=== PATIENT | male | born 1990 | race African-American/Black ===

== ENCOUNTER 2017-10-12 21:35 | Inpatient (IN) | payer BC, MEDICAID, OTHER ==
[2017-10-12] MEDS ORDERED: IPRATROPIUM/ALBUTEROL 0.5-2.5 MG/3 ML AMPUL NEB ONE ×2 (22:57→23:03)
[2017-10-12] MEDS ORDERED: METHYLPREDNISOLONE INJ 125 MG/2 ML SDV IV ONE (23:04)
[2017-10-12] MEDS ORDERED: METHYLPREDNISOLONE INJ 125 MG/2 ML SDV ONE (23:04)
[2017-10-12] MEDS ORDERED: MAGNESIUM SULFATE/D5W 2 GM/200 ML RTUPB IV ONE (23:04)
[2017-10-12] MEDS: MAGNESIUM SULFATE/D5W 1 GM/100 ML RTUPB IV SCH ×2 (23:15→23:17)
--- NOTE | 2017-10-12 23:22 | ER Document Report ---
ED General - General Chief Complaint: Shortness Of Breath Stated Complaint: CHEST PAIN DIFFICUTLY BREATHING Time Seen by Provider: 10/12/17 22:57 Notes: Patient is a 26-year-old male who presents with complaint of asthma exacerbation. Patient says he has had asthma since he was a child. He has been admitted to the hospital in the past for his asthma. He has never been on a ventilator. He says he typically does not have to use an inhaler unless he becomes sick. Patient says he started to have runny nose and congestion earlier in the day and then started to have difficulty breathing wheezing as the day progressed. He does not have an inhaler at home. She denies any fevers. He is a smoker. He denies any medical allergies. No other complaints at this time. TRAVEL OUTSIDE OF THE [place] IN LAST 30 DAYS: No - Related Data Allergies/Adverse Reactions: No Known Allergies Allergy (Unverified 10/13/17 02:48) Past Medical History - Social History Smoking Status: Current Every Day Smoker Frequency of alcohol use: None Drug Abuse: None Family History: Reviewed & Not Pertinent Review of Systems - Review of Systems Notes: My Normal Review Basic REVIEW OF SYSTEMS: CONSTITUTIONAL : Denies fever, chills, or sweats. Denies recent illness. CARDIOVASCULAR: Chest tightness with difficulty breathing RESPIRATORY: cough and wheezing GASTROINTESTINAL: Denies abdominal pain. Denies nausea, vomiting, or diarrhea. Denies constipation. Last BM: GENITOURINARY: Denies difficulty urinating, painful urination, burning, frequency, or blood in urine. MUSCULOSKELETAL: Denies neck or back pain or joint pain or swelling. SKIN: Denies rash or skin lesions. NEUROLOGICAL: Denies altered mental status or loss of consciousness. Denies headache. Denies weakness or paralysis or loss of use of either side. Denies problems with gait or speech. Denies sensory or motor loss. ALL OTHER SYSTEMS REVIEWED AND NEGATIVE. Physical Exam - Vital signs Vitals: Temp Pulse Resp BP Pulse Ox 98.8 F 116 H 18 120/64 96 10/12/17 22:04 10/12/17 22:04 10/12/17 22:04 10/12/17 22:04 10/12/17 22:04 - Notes Notes: General Appearance: Well nourished, alert, cooperative, no acute distress, no obvious discomfort. Vitals: reviewed, See vital signs table. Head: no swelling or tenderness to the head Eyes: PERRL, EOMI, Conjuctiva clear Mouth: No decreasd moisture Neck: Supple, no neck tenderness Lungs: Diffuse wheezing. Mild tachypnea.. Heart: Tachycardic rate, Regular rythm, No murmur, no rub Abdomen: Normal BS, soft, No rigidity, No abdominal tenderness, No guarding, no rebound Extremities: strength 5/5 in all extremities, good pulses in all extremities, no swelling or tenderness in the extremities, no edema. Skin: warm, dry, appropriate color, no rash Neuro: speech clear, oriented x 3, normal affect, responds appropriately to questions. Course - Re-evaluation Re-evalutation: 10/12/17 23:29 Patient's lung encinas are improved after breathing treatment however he is still requiring supplemental oxygen and still has some mild tachypnea. I am awaiting x-ray to come back. He is receiving magnesium at this time. Will reassess shortly after chest x-ray comes back. 10/13/17 00:30 Patient still has mild wheezing on reevaluation but is still requiring subliminal oxygen. Due to the good air movement and small amount of wheezing that he has with hypoxia which would not be 100% expected I will obtain a CT of the chest to make sure that he does not have an underlying PE. Patient is agreeable to this. 10/13/17 05:00 To the fact patient continually have mild wheezing and had fairly good air movement but was still hypoxic we did obtain a CT scan. CT scan does not show obvious PE. She did not mention that the bolus was voluminous times however they do not see an obvious PE. He does have what appears to be bilateral pneumonia. I did speak with the hospitalist who is ordering Rocephin and azithromycin for the patient. She will admit the patient. I spoke the patient who agrees to be admitted. Hospitalist I spoke with was Dr. Prajapati. Dictation of this chart was performed using voice recognition software; therefore, there may be some unintended grammatical errors. - Vital Signs Vital signs: Temp Pulse Resp BP Pulse Ox 98.8 F 116 H 16 131/93 H 93 10/12/17 22:04 10/12/17 22:04 10/13/17 02:06 10/13/17 02:06 10/13/17 02:06 - Laboratory Result Diagrams: 10/12/17 23:15 10/12/17 23:15 Laboratory results interpreted by me: 10/12/17 10/12/17 23:15 23:15 WBC 14.4 H RBC 5.78 H MCH 26.9 L RDW 14.3 H Absolute Neutrophils 8.8 H Absolute Eosinophils 0.8 H Calcium 10.9 H - EKG Interpretation by Me Additional EKG results interpreted by me: 10/13/17 01:14 EKG is reviewed and interpreted by me. EKG shows sinus tachycardia with a rate of [address] segment elevation or depression. Patient does have small Q waves in inferior leads. IL interval, QRS duration, QTc intervals are within normal range. No old EKG available for comparison. Discharge - Discharge Clinical Impression: Pneumonia Qualifiers: Pneumonia type: due to unspecified organism Laterality: bilateral Lung location : unspecified part of lung Qualified Code(s): J18.9 - Pneumonia, unspecified organism Condition: Stable Disposition: ADMITTED INPATIENT Admitting Provider: Hospitalist Unit Admitted: Telemetry
[2017-10-12 23:50] LABS: ANION GAP 15 (5-19); BLOOD UREA NITROGEN 11 mg/dL (7-20); CALCIUM 10.9 mg/dL (8.4-10.2); CARBON DIOXIDE 23 mmol/L (22-30); CHLORIDE 106 mmol/L (98-107); CREATININE RESULT 0.99 mg/dL (0.52-1.25); GLUCOSE 94 mg/dL (75-110); POTASSIUM 4.2 mmol/L (3.6-5.0)
[2017-10-12 23:51] LABS: ABSOLUTE BASOPHILS # (AUTO) 0.1 10^3/uL (0.0-0.2); ABSOLUTE EOSINOPHILS # (AUTO) 0.8 10^3/uL (0.0-0.6); ABSOLUTE LYMPHOCYTES (AUTO) 3.7 10^3/uL (0.5-4.7); ABSOLUTE MONOCYTES (AUTO) 1.1 10^3/uL (0.1-1.4); ABSOLUTE NEUT (AUTO) 8.8 10^3/uL (1.7-8.2); BASOPHILS % (AUTO) 0.6 % (0-2); EOSINOPHILS % (AUTO) 5.6 % (0-6); HEMOGLOBIN 15.5 g/dL (13.5-17.0); HGB HCT DIFFERENCE -0.5; LYMPHOCYTES % (AUTO) 25.5 % (13-45); MEAN CORPUSCULAR HEMOGLOBIN 26.9 pg (27.0-33.4); MEAN CORPUSCULAR HGB CONC 33.1 g/dL (32.0-36.0); MEAN CORPUSCULAR VOLUME 81 fl (80-97); MONOCYTES % (AUTO) 7.3 % (3-13); RED BLOOD COUNT 5.78 10^6/uL (4.35-5.55); RED CELL DISTRIBUTION WIDTH 14.3 % (11.5-14.0); WHITE BLOOD COUNT 14.4 10^3/uL (4.0-10.5)
--- NOTE | 2017-10-13 00:24 | RADIOLOGY REPORT (SQ) ---
EXAM DESCRIPTION: CHEST SINGLE VIEW COMPLETED DATE/TIME: 10/13/2017 12:13 am REASON FOR STUDY: dyspnea COMPARISON: None. EXAM PARAMETERS: NUMBER OF VIEWS: One view. TECHNIQUE: Single frontal radiographic view of the chest acquired. RADIATION DOSE: NA LIMITATIONS: None. FINDINGS: LUNGS AND PLEURA: No consolidation, pneumothorax or pleural effusion. MEDIASTINUM AND HILAR STRUCTURES: No masses. Contour normal. HEART AND VASCULAR STRUCTURES: Heart normal in size. Normal vasculature. BONES: No acute findings. HARDWARE: None in the chest. IMPRESSION: No acute radiographic finding in the chest. TECHNICAL DOCUMENTATION: JOB ID: [id number] 2010 [employer]- All Rights Reserved
[2017-10-13] MEDS ORDERED: NORMAL SALINE 1000 ML 1,000 ML IV ONE ×2 (00:27→04:25)
[2017-10-13] MEDS ORDERED: ALBUTEROL SULFATE 0.083% NEB 2.5 MG/3 ML AMPUL NEB ONE ×2 (01:59)
--- NOTE | 2017-10-13 02:25 | RADIOLOGY REPORT (SQ) ---
EXAM DESCRIPTION: CTA CHEST COMPLETED DATE/TIME: 10/13/2017 1:52 am REASON FOR STUDY: dyspnea , shortness of breath. COMPARISON: Chest x-ray 10/13/2017. TECHNIQUE: CT scan of the chest performed using helical scanning technique with dynamic intravenous contrast injection. Images reviewed with lung, soft tissue and bone windows. Reconstructed coronal and sagittal MPR images reviewed. Additional 3 dimensional post-processing performed to develop Maximal Intensity Projection images (IL P). All images stored on PACS. All CT scanners at this facility use dose modulation, iterative reconstruction, and/or weight based d osing when appropriate to reduce radiation dose to as low as reasonably achievable (ALARA). [facility]: Dose Right [facility]: CareDose [facility]: Dose Right [facility]: Teradose 4D [facility]: ANDalyze CONTRAST TYPE AND DOSE: contrast/concentration: Isovue 370.00 mg/ml; Total Contrast Delivered: 100.0 ml; Total Saline Delivered: 55.0 ml RENAL FUNCTION: Creatinine 0.99 RADIATION DOSE: . LIMITATIONS: There is motion artifact. There is suboptimal contrast opacification of the pulmonary arterial tree. FINDINGS: LUNGS AND PLEURA: Scattered patchy ground-glass opacities are seen at the right upper lobe , right middle lobe, right lower lobe, lingula and left lower lobe. No pleural effusion or pneumotho rax. AORTA AND GREAT VESSELS: No thoracic aortic aneurysm. HEART: No pericardial effusion. No significant coronary artery calcifications. PULMONARY ARTERIES: Suboptimal contrast opacification of the pulmonary arterial tree. No emboli with in the main pulmonary arteries, the segmental and subsegmental branches are not well evaluated on thi s exam. HILAR AND MEDIASTINAL STRUCTURES: No identified masses or abnormal nodes. HARDWARE: None in the chest. UPPER ABDOMEN: No significant findings. Limited exam. THYROID AND OTHER SOFT TISSUES: The visualized thyroid gland is unremarkable. BONES: No acute findings. 3D MIPS: Confirm above findings. IMPRESSION: Suboptimal contrast opacification of the pulmonary arterial tree. No pulmonary emboli w ithin the main pulmonary arteries, the segmental and subsegmental branches are not well evaluated on this exam. Scattered bilateral patchy ground-glass opacity, may represent atelectasis or pneumonia. COMMENT: Quality ID # [id number]: Final reports with documentation of one or more dose reduction techniques (e.g., Automated exposure control, adjustment of the mA and/or kV according to patient size, use of iterative reconstruction technique) TECHNICAL DOCUMENTATION: JOB ID: [id number] [place]-[id number] 2010 [facility] [employer] [facility] [employer]- All Rights Reserved
[2017-10-13] MEDS ORDERED: GUAIFENESIN SYRP 200 MG/10 ML UDC PO PRN (04:21)
[2017-10-13] MEDS ORDERED: LEVALBUTEROL HCL NEB 1.25 MG/3 ML AMPUL NEB PRN (04:21)
[2017-10-13] MEDS ORDERED: AZITHROMYCIN INJ 500 MG VIAL IV PRN (04:48)
[2017-10-13] MEDS ORDERED: AZITHROMYCIN 500 MG in DEXTROSE 5%-WATER 250 ML IV ONE (05:00)
[2017-10-13] MEDS ORDERED: CEFTRIAXONE 1 GM/D5W RTU 1 GM/50 ML RTUPB IV ONE (05:00)
[2017-10-13] MEDS: NORMAL SALINE 1000 ML 1,000 ML IV PRN ×3 (06:30→21:23)
--- NOTE | 2017-10-13 07:40 | PDOC H&P ---
History of Present Illness Admission Date/PCP: 10/13/17 03:41 NO PCP History of Present Illness: SUSI RYAN JR is a 26 year old male with past medical history of asthma who presents to the emergency department with about 24 hours of subjective fever , chills, shortness of breath, nausea and cough productive of yellow sputum. Patient was found to be in extremis with hypoxia and received 3 breathing treatments in the emergency department. Patient has a prior admission history for his asthma, but has never been intubated. Because of patient's hypoxia desaturating down to 88 when on room air, patient received a CTA. Unfortunately this revealed a suboptimal bolus, but did reveal groundglass infiltrates consistent with pneumonia. Patient is referred to hospital service for sepsis and pneumonia. Past Medical History Pulmonary Medical History: Reports: Asthma Past Surgical History Past Surgical History: Reports: Orthopedic Surgery Social History Smoking Status: Current Every Day Smoker Cigarettes Packs Per Day: 0.2 Frequency of Alcohol Use: Occasional Hx Recreational Drug Use: No Hx Prescription Drug Abuse: No - Advance Directive Resuscitation Status: Full Code Surrogate healthcare decision maker:: Mother, Marissa Ryan Family History Family History: CAD, Other - Father of a blood clot Parental Family History Reviewed: Yes Children Family History Reviewed: Yes Sibling(s) Family History Reviewed.: Yes Medication/Allergy Home Medications: No Home Medications 10/13/17 Allergies/Adverse Reactions: No Known Allergies Allergy (Unverified 10/13/17 02:48) Review of Systems Constitutional: PRESENT: as per HPI, chills, fever(s). ABSENT: headache(s), weight gain, weight loss Eyes: ABSENT: visual disturbances Ears: ABSENT: hearing changes Cardiovascular: PRESENT: chest pain. ABSENT: dyspnea on exertion, edema, orthropnea, palpitations Respiratory: PRESENT: cough, dyspnea, sputum. ABSENT: hemoptysis Gastrointestinal: PRESENT: nausea. ABSENT: abdominal pain, constipation, diarrhea, hematemesis, hematochezia, melena, vomiting Genitourinary: ABSENT: dysuria, hematuria Musculoskeletal: ABSENT: joint swelling Integumentary: ABSENT: rash, wounds Neurological: ABSENT: abnormal gait, abnormal speech, confusion, dizziness, focal weakness, syncope Psychiatric: ABSENT: anxiety, depression, homidical ideation, suicidal ideation Endocrine: ABSENT: cold intolerance, heat intolerance, polydipsia, polyuria Hematologic/Lymphatic: ABSENT: easy bleeding, easy bruising Physical Exam Vital Signs: Temp Pulse Resp BP Pulse Ox 98.9 F 116 H 22 H 130/76 H 94 10/13/17 05:50 10/12/17 22:04 10/13/17 07:01 10/13/17 07:01 10/13/17 07:01 General appearance: PRESENT: mild distress - Acutely ill-appearing, well- developed, well-nourished Head exam: PRESENT: atraumatic, normocephalic Eye exam: PRESENT: conjunctiva pink, EOMI, PERRLA. ABSENT: conjunctival injection, scleral icterus Ear exam: PRESENT: normal external ear exam Mouth exam: PRESENT: dry mucosa, tongue midline Throat exam: PRESENT: post pharyngeal erythema. ABSENT: tonsillar erythema, tonsillar exudate, tonsillogmegaly Neck exam: PRESENT: lymphadenopathy. ABSENT: JVD, tenderness, thyromegaly, tracheal deviation Respiratory exam: PRESENT: prolonged expiratory phas, rhonchi, symmetrical, tachypnea, unlabored, wheezes - Bilateral end expiratory, other - Egophony bilateral upper lobes. ABSENT: accessory muscle use, rales, retraction Cardiovascular exam: PRESENT: RRR, +S1, +S2, tachycardia. ABSENT: diastolic murmur, gallop, rubs, systolic murmur Pulses: PRESENT: normal dorsalis pedis pul Vascular exam: PRESENT: normal capillary refill GI/Abdominal exam: PRESENT: normal bowel sounds, soft. ABSENT: distended, guarding, mass, organolmegaly, rebound, tenderness Rectal exam: PRESENT: deferred Extremities exam: PRESENT: full ROM. ABSENT: calf tenderness, clubbing, pedal edema Neurological exam: PRESENT: alert, awake, oriented to person, oriented to place , oriented to time, oriented to situation, CN II-XII grossly intact. ABSENT: motor sensory deficit Psychiatric exam: PRESENT: appropriate affect, normal mood. ABSENT: homicidal ideation, suicidal ideation Skin exam: PRESENT: dry, intact, rash - Pale circumferential macular rash on right forearm, warm. ABSENT: cyanosis Results Laboratory Results: 10/13/17 05:40 Lactic Acid 3.0 H 10/12/17 10/12/17 10/13/17 23:15 23:15 04:50 WBC 14.4 H Hgb 15.5 Hct 47.0 Plt Count 208 Sodium 144.0 Potassium 4.2 Chloride 106 Carbon Dioxide 23 Anion Gap 15 BUN 11 Creatinine 0.99 Glucose 94 Calcium 10.9 H Influenza A (Rapid) NEGATIVE Influenza B (Rapid) NEGATIVE Impressions: Chest X-Ray 10/12/17 23:28 IMPRESSION: No acute radiographic finding in the chest. Chest/Abdomen CTA 10/13/17 00:27 IMPRESSION: Suboptimal contrast opacification of the pulmonary arterial tree. No pulmonary emboli within the main pulmonary arteries, the segmental and subsegmental branches are not well evaluated on this exam. Scattered bilateral patchy ground-glass opacity, may represent atelectasis or pneumonia. Status: Imported from PACS Assessment & Plan - Diagnosis (1) Sepsis Qualifiers: Sepsis type: sepsis due to unspecified organism Qualified Code(s): A41.9 - Sepsis, unspecified organism Is this a current diagnosis for this admission?: Yes Plan: Secondary to underlying pneumonia. Will bolus patient and maintain map greater than 65. Did not start empiric treatment for community-acquired pneumonia. (2) Acute hypoxemic respiratory failure Is this a current diagnosis for this admission?: Yes Plan: Continue oxygen as needed to maintain saturation greater than 94% (3) Pneumonia Qualifiers: Pneumonia type: due to unspecified organism Laterality: bilateral Lung location: unspecified part of lung Qualified Code(s): J18.9 - Pneumonia, unspecified organism Is this a current diagnosis for this admission?: Yes Plan: Patient with bilateral pneumonia likely an atypical organism due to community- acquired causes. Place patient empirically on Rocephin and azithromycin. Scheduled nebulized treatments, and prednisone. Obtain sputum culture. Incentive spirometry and flutter valve. Guaifenesin. - Time Time Spent: 30 to 50 Minutes Medications reviewed and adjusted accordingly: Yes Anticipated discharge: Home Within: Other - Upon improvement of symptomatology - Inpatient Certification Based on my medical assessment, after consideration of the patient's comorbidities, presenting symptoms, or acuity I expect that the services needed warrant INPATIENT care.: Yes I certify that my determination is in accordance with my understanding of Medicare's requirements for reasonable and necessary INPATIENT services [42 CFR 412.3e].: Yes Medical Necessity: Need For IV Fluids, Need for Nebulizer Therapy and Monitoring of Response, Need for IV Antibiotics Post Hospital Care: D/C Manager Technical Sales Documentation
[2017-10-13] MEDS: IPRATROPIUM/ALBUTEROL 0.5-2.5 MG/3 ML AMPUL NEB SCH ×3 (08:00→19:44)
--- NOTE | 2017-10-13 08:15 | EKG REPORT ---
SEVERITY:- OTHERWISE NORMAL ECG - SINUS TACHYCARDIA : Confirmed by: Fidel Burr MD 13-Oct-2017 08:14:53
[2017-10-13] MEDS: ACETAMINOPHEN 325 MG TABLET PO PRN ×2 (08:55→20:41)
--- NOTE | 2017-10-13 09:36 | RADIOLOGY REPORT (SQ) ---
EXAM DESCRIPTION: VENOUS BILATERAL LOWER COMPLETED DATE/TIME: 10/13/2017 9:28 am REASON FOR STUDY: hypoxia COMPARISON: None. TECHNIQUE: Dynamic and static weathers scale and color images acquired of both lower extremity venous sy stems. Selected spectral images acquired with additional compression and augmentation maneuvers. Imag es stored on PACS. LIMITATIONS: None. FINDINGS: RIGHT LEG COMMON FEMORAL AND FEMORAL: Normal phasicity, compression and augmentation. No visualized echogenic m aterial on weathers scale. No defects on color images. POPLITEAL: Normal compression and augmentation. No visualized echogenic material on weathers scale. No de fects on color images. CALF VESSELS: Normal compression and augmentation. No visualized echogenic material on weathers scale. No defects on color image. GSV AND SSV: Normal compression. No visualized echogenic material on weathers scale. No defects on color images. ANY DEEP VENOUS INSUFFICIENCY: No. ANY EVIDENCE OF POPLITEAL CYST: No. OTHER: No other significant finding. LEFT LEG COMMON FEMORAL AND FEMORAL: Normal phasicity, compression and augmentation. No visualized echogenic m aterial on weathers scale. No defects on color images. POPLITEAL: Normal compression and augmentation. No visualized echogenic material on weathers scale. No de fects on color images. CALF VESSELS: Normal compression and augmentation. No visualized echogenic material on weathers scale. No defects on color images. GSV AND SSV: Normal compression. No visualized echogenic material on weathers scale. No defects on color images. ANY DEEP VENOUS INSUFFICIENCY: No. ANY EVIDENCE POPLITEAL CYST: No. OTHER: No other significant finding. IMPRESSION: NO EVIDENCE DVT OR SVT IN EITHER LEG. TECHNICAL DOCUMENTATION: JOB ID: [id number] [employer]- All Rights Reserved
[2017-10-13] MEDS ORDERED: PREDNISONE 20 MG TABLET PO SCH (10:00)
[2017-10-13] MEDS: ENOXAPARIN SODIUM INJ 40 MG/0.4 ML DISP.SYRIN SUBCUT SCH (10:07)
[2017-10-13] MEDS: GUAIFENESIN 600 MG TABLET.SA PO SCH ×2 (10:08→21:23)
--- NOTE | 2017-10-13 13:08 | PROGRESS NOTE E ---
Progress Note NAME: SUSI RYAN : 1990 AGE: 26Y DATE: 10/13/2017 ROOM: ED03 SUBJECTIVE: The patient is lying in bed. The patient states that he does feel better than when he came in. The patient is now able to fully complete sentences, which is a significant improvement. The patient admits to a strong cough but denies sputum production. The patient has been afebrile but remains slightly tachycardic, will tach up into the 120s with nebulizers. Blood pressures have been in a good range. The patient does not voice any concerns at this time. REVIEW OF SYSTEMS: The rest of the review of systems is negative. MEDICATIONS: Medications have been reviewed. OBJECTIVE: GENERAL: The patient is a very pleasant 26-year-old male who is awake, alert. He is oriented to person, place, time, and situation. He is verbal, conversational. He does not appear to be in distress. VITAL SIGNS: As follows: Temperature is 98.0, pulse 106, respirations 17, blood pressure is 137/69, oxygen saturation is 94% on 2 L nasal cannula. SKIN: Warm and dry. No rash, not diaphoretic. HEENT: Pupils equal, round, and reactive to light and accommodation. Conjunctiva is pink. No JVP. CARDIOVASCULAR: Heart is tachycardic, regular. Is no rub. CHEST: Patient is very diminished in both lung encinas with expiratory wheezes noted in the upper lung encinas. ABDOMEN: Soft, nontender, nondistended. BACK: No CVA tenderness or sacral edema. EXTREMITIES: No clubbing, cyanosis, edema. PSYCHIATRIC: Appropriate affect. Pleasant mood. DIAGNOSTICS: Lab values are as follows. Hematology obtained on 10/12/2017: WBCs are 14.4, hemoglobin is 15.5, hematocrit is 47.0, and platelet count is 208,000. Chemistry obtained on 10/12/2017: Sodium is 144, potassium 4.2, chloride is 106, carbon dioxide 23, BUN 11, creatinine is 0.99, glucose 94, calcium is 10.9. IMPRESSION AND PLAN: 1. ACUTE ASTHMA EXACERBATION. The patient still is quite tight. Will continue scheduled nebs as well as p.r.n. Continue steroids and will add leukotriene inhibitor as well as antihistamine and follow. 2. ACUTE HYPOXEMIC RESPIRATORY FAILURE. Will continue O2 to maintain sats greater than 94%. 3. BILATERAL COMMUNITY-ACQUIRED PNEUMONIA. Will continue current antibiotic coverage as well as await sputum culture and sensitivity. 4. SEPSIS SECONDARY TO ALL THE ABOVE. Clinically the patient appears to be improving. DISPOSITION: THE PATIENT IS A FULL CODE. Pending the patient's symptomatology and diagnostic findings, will re-evaluate in the a.m. Time spent on this followup, including assessment/plan, physical examination, patient education and review of previous and current medical records, is 25 minutes. DICTATING PHYSICIAN: ALEJANDRA LEOS NP [id number] PHY#: [id number] ID: [id number] JOB#: [id number] ACCT: [id number] cc: >
[2017-10-13] MEDS ORDERED: INFLUENZA ADLT QUAD (36MOS+) 2017-18 VAC 0.5 ML SYR IM PRN (14:50)
[2017-10-13] MEDS ORDERED: NORMAL SALINE 1000 ML 2,000 ML IV ONE (20:12)
[2017-10-13] MEDS ORDERED: MONTELUKAST SODIUM 10 MG TABLET PO SCH (22:00)
[2017-10-14] MEDS: IPRATROPIUM/ALBUTEROL 0.5-2.5 MG/3 ML AMPUL NEB SCH ×2 (01:57→07:39)
[2017-10-14 05:30] LABS: ABSOLUTE LYMPHOCYTES (AUTO) 2.7 10^3/uL (0.5-4.7); ABSOLUTE MONOCYTES (AUTO) 1.9 10^3/uL (0.1-1.4); ABSOLUTE NEUT (AUTO) 12.7 10^3/uL (1.7-8.2); BASOPHILS % (AUTO) 0.2 % (0-2); EOSINOPHILS % (AUTO) 0.2 % (0-6); HEMATOCRIT 38.9 % (37.9-51.0); HGB HCT DIFFERENCE -0.5; LYMPHOCYTES % (AUTO) 15.6 % (13-45); MEAN CORPUSCULAR HEMOGLOBIN 26.3 pg (27.0-33.4); MEAN CORPUSCULAR HGB CONC 32.8 g/dL (32.0-36.0); MEAN CORPUSCULAR VOLUME 80 fl (80-97); MONOCYTES % (AUTO) 10.7 % (3-13); RED BLOOD COUNT 4.85 10^6/uL (4.35-5.55); RED CELL DISTRIBUTION WIDTH 14.4 % (11.5-14.0); SEGMENTED NEUTROPHILS % (AUTO) 73.3 % (42-78); WHITE BLOOD COUNT 17.4 10^3/uL (4.0-10.5)
[2017-10-14 05:34] LABS: HEMOGLOBIN 12.8 g/dL (13.5-17.0)
[2017-10-14 05:43] LABS: ANION GAP 13 (5-19); BLOOD UREA NITROGEN 7 mg/dL (7-20); CALCIUM 9.9 mg/dL (8.4-10.2); CARBON DIOXIDE 19 mmol/L (22-30); CHLORIDE 112 mmol/L (98-107); CREATININE RESULT 0.67 mg/dL (0.52-1.25); GLUCOSE 107 mg/dL (75-110); POTASSIUM 3.9 mmol/L (3.6-5.0)
--- NOTE | 2017-10-14 07:53 | EKG REPORT ---
SEVERITY:- OTHERWISE NORMAL ECG - SINUS TACHYCARDIA : Confirmed by: Fidel Burr MD 14-Oct-2017 07:53:09
[2017-10-14] MEDS ORDERED: AZITHROMYCIN 500 MG in DEXTROSE 5%-WATER 250 ML IV SCH (08:00)
[2017-10-14] MEDS ORDERED: CEFTRIAXONE 1 GM/D5W RTU 1 GM/50 ML RTUPB IV SCH (08:00)
[2017-10-14] MEDS: ENOXAPARIN SODIUM INJ 40 MG/0.4 ML DISP.SYRIN SUBCUT SCH (09:25)
[2017-10-14] MEDS: GUAIFENESIN 600 MG TABLET.SA PO SCH (09:26)
[2017-10-14] MEDS ORDERED: PREDNISONE 20 MG TABLET PO SCH (10:00)
[2017-10-14 10:05] VITALS: BP 120/64
--- NOTE | 2017-10-14 15:03 | DISCHARGE SUMMARY E ---
Discharge Summary NAME: SUSI RYAN : 1990 AGE: 26Y ADMITTED: 10/13/2017 DISCHARGED: 10/14/2017 CODE STATUS: FULL CODE. PRIMARY CARE PROVIDER: [facility]. DISCHARGE DIAGNOSES: 1. Asthma exacerbation. 2. Acute hypoxemic respiratory failure. 3. Bilateral community-acquired pneumonia. 4. Sepsis secondary to all the above, which has resolved. DISCHARGE MEDICATIONS: 1. Prednisone 60 mg taper. 2. Mucinex SR 600 mg p.o. q.12 h., 14 tablets, 0 refills. 3. Ceftin 500 mg p.o. b.i.d., 14 tablets, 0 refills. 4. Zithromax Tri-Tyrone 500 mg p.o. daily. DIET: As tolerated. ACTIVITY: As tolerated. DIAGNOSTICS: Lab values are as follows: Hematology on 10/14/2017: WBCs are 17.4, hemoglobin 12.8, hematocrit 38.9, platelet count is 181,000. Coagulation obtained on 10/13/2017: D-dimer is 0.27. Chemistry obtained on 10/14/2017: Sodium is 144, potassium 3.9, chloride 112, carbon dioxide 19, BUN 7, creatinine 1.67, glucose 107, calcium 9.9. Serology obtained on 10/13/2017: Influenza A and B are negative. Blood cultures obtained on 10/13/2017 revealed no growth. Sputum culture obtained on 10/13/2017 revealed no growth. Chest x-ray obtained on 10/12/2017 reveals no acute radiographic finding of the chest. Venous Doppler obtained on 10/13/2017 reveals no DVT or SVT in either extremity. CTA of the abdomen obtained 10/12/2017 reveals scattered bilateral patchy ground-glass opacities consistent with atelectasis or pneumonia. No evidence of pulmonary emboli within the main pulmonary arteries. EKG obtained on 10/13/2017 reveals sinus tach. EKG obtained on 10/13/2017 reveals sinus tachycardia. PHYSICAL EXAMINATION: GENERAL: On examination, the patient is a well-developed, well-nourished 26-year-old male who is awake, alert and oriented to person, place, time and situation. He is verbal and conversational and does not appear to be in any acute distress. VITAL SIGNS FOLLOWS: Temperature 98.5, pulse 113, respirations 18, blood pressure 121/73, oxygen saturation is 97% on 2 L nasal cannula. SKIN: Warm and dry. No rash, not diaphoretic. HEENT: Pupils are equal, round, and reactive to light and accommodation. Conjunctivae is pink. No JVP. CVS: Heart is regular. There is no murmur or rub. CHEST: Clear, symmetrical and unlabored. ABDOMEN: Soft. Nontender, nondistended. BACK: No CVA tenderness or sacral edema. EXTREMITIES: No clubbing, cyanosis or edema. PSYCHIATRIC: Appropriate affect. Pleasant mood. HISTORY OF PRESENT ILLNESS: The patient is a pleasant 26-year-old male with a past medical history of asthma who presented to the emergency department with a 24-hr history of subjective fevers, chills and shortness of breath but yellow productive cough. The patient was found to have hypoxia. The patient received 3 breathing treatments while in the emergency department. The patient had a prior admission history for asthma but had never been intubated. Because of the patient's hypoxia down to 88% on room air, the patient had a CTA which did not reveal any PE within the main arteries but given the findings suggestive of pneumonia, the patient was referred to the hospitalist for admission and management. HOSPITAL COURSE: The patient was admitted to the [facility]. The patient was placed on Rocephin and Zithromax IV, and the patient had a tremendous response to symptoms. The patient was started on Singulair as well as Mucinex, and the patient began producing copious amounts of sputum. The patient was able to ambulate on room air and did not desat below 98%. The patient was able to fully complete sentences, had no fevers overnight, and the patient is quite eager for discharge. DISCHARGE PLANNING: The patient is advised to follow up with his primary care provider, [facility], within 1 week for hospital followup. Time spent on this discharge including assessment and plan, physical examination, and patient education is 25 minutes. DICTATING PHYSICIAN: ALEJANDRA LEOS NP [id number] PHY#: [id number] ID: [id number] JOB#: [id number] ACCT: [id number] cc:REBECCA HERRERA M.D., MICHAEL NP >
== END 2017-10-14 11:02 | disposition home or self-care (01) | DRG 871 ==
LOC: ER 21:35 → EH 10-13 03:41 → 3N 10-13 14:00
PROVIDERS: ADMIT Family Medicine; ATTEND Family Medicine
PROC: 3E0234Z Introduction of Serum, Toxoid and Vaccine into Muscle, Percutaneous Approach (ICD-10-PCS; principal; 2017-10-14)
DX: A41.9 Sepsis, unspecified organism (principal); J18.9 Pneumonia, unspecified organism; J96.01 Acute respiratory failure with hypoxia; J45.901 Unspecified asthma with (acute) exacerbation; F17.210 Nicotine dependence, cigarettes, uncomplicated; Z23 Encounter for immunization
CPT/HCPCS: 36415; 71010; 71275; 80048; 83605; 85025; 85379; 87040; 87070; 87077; 87186; 87205; 87804; 90686; 93005; 93010; 93970; 94640; 94667; 94762; 94799; 96365; 96366; 96375; 99285; J0456; J0696; J1650; J2930; J3475; J3490; J7030; J7060; J7512; J7620

== ENCOUNTER 2018-08-16 15:52 | Emergency (ER) | payer SELFPAY ==
--- NOTE | 2018-08-16 16:39 | ER Document Report ---
ED Medical Screen (RME) - General Chief Complaint: Pain With Urination Stated Complaint: TESTICLE PAIN Time Seen by Provider: 08/16/18 16:37 Mode of Arrival: Ambulatory Information source: Patient, [facility] Records Notes: 27-year-old male presents with complaint of testicular pain, penile discharge and dysuria that started 2 days prior to arrival. Patient is sexually active. He states that he wears protection "most of the time". He denies previous history of STD. I have greeted and performed a rapid initial assessment of this patient. A comprehensive ED assessment and evaluation of the patient, analysis of test results and completion of medical decision making process we will be contacted by additional ED providers. PHYSICAL EXAMINATION: Vital signs reviewed GENERAL: Well-appearing, well-nourished and in no acute distress. LUNGS: No respiratory distress Musculoskeletal: Normal range of motion NEUROLOGICAL: Normal speech, normal gait. PSYCH: Normal mood, normal affect. SKIN: Warm, Dry, normal turgor, no rashes or lesions noted. TRAVEL OUTSIDE OF THE [place] IN LAST 30 DAYS: No - HPI Onset: Other Onset/Duration: Gradual, Persistent Quality of pain: Dull Severity: Mild Associated Symptoms: Dysuria Exacerbated by: Denies Relieved by: Denies Similar symptoms previously: No Recently seen / treated by doctor: No - Related Data Smoking: Cigarettes Frequency of alcohol use: None Drug Abuse: None Allergies/Adverse Reactions: No Known Allergies Allergy (Unverified 10/13/17 02:48) Past Medical History - Social History Chew tobacco use (# tins/day): No Frequency of alcohol use: None Drug Abuse: None Pulmonary Medical History: Reports: Hx Asthma Renal/ Medical History: Denies: Hx Peritoneal Dialysis Psychiatric Medical History: Denies: Hx Depression Past Surgical History: Reports: Hx Orthopedic Surgery - Immunizations History of Influenza Vaccine for 08/2017 - 01/2018 Season: No Physical Exam - Vital signs Vitals: Temp Pulse Resp BP Pulse Ox 99.1 F 101 H 20 137/78 H 98 08/16/18 16:09 08/16/18 16:09 08/16/18 16:09 08/16/18 16:09 08/16/18 16:09 Course - Vital Signs Vital signs: Temp Pulse Resp BP Pulse Ox 99.1 F 101 H 20 137/78 H 98 08/16/18 16:09 08/16/18 16:09 08/16/18 16:09 08/16/18 16:09 08/16/18 16:09
[2018-08-16] MEDS ORDERED: AZITHROMYCIN 250 MG TABLET PO ONE (16:48)
[2018-08-16] MEDS ORDERED: LIDOCAINE 1% INJ-PF (10 MG/ML) 30 ML SDV INJ ONE (16:48)
[2018-08-16] MEDS ORDERED: CEFTRIAXONE INJ 250 MG VIAL IM ONE (16:48)
--- NOTE | 2018-08-16 17:01 | ER Document Report ---
ED General - General Chief Complaint: Pain With Urination Stated Complaint: TESTICLE PAIN Time Seen by Provider: 08/16/18 16:37 Mode of Arrival: Ambulatory TRAVEL OUTSIDE OF THE [place] IN LAST 30 DAYS: No - HPI Notes: Patient is a 27-year-old male no significant past medical history who presents to the ED complaining of possible STD. Patient states that he has been having burning with urination as well as scant urethral discharge over the last week. Patient states that he does have some soreness in his penis in the evenings primarily, but states that he does not have any specific testicular pain. He denies any drug allergies. He is eating and drinking without any difficulties. Pt has been involved with unprotected sex. Denies any headache, fever, URI, sore throat, chest pain, palpitations, syncope, cough, shortness of breath, wheeze, dyspnea, abdominal pain, nausea/vomiting/diarrhea, urinary retention, back pain, loss of control of bowel or bladder, numbness/tingling, saddle anesthesia, muscle paralysis/weakness, or rash. - Related Data Allergies/Adverse Reactions: No Known Allergies Allergy (Unverified 10/13/17 02:48) Past Medical History - General Information source: Patient, [facility] Records - Social History Smoking Status: Current Every Day Smoker Chew tobacco use (# tins/day): No Frequency of alcohol use: None Drug Abuse: None Family History: CAD, Other - Father of a blood clot Patient has suicidal ideation: No Patient has homicidal ideation: No Pulmonary Medical History: Reports: Hx Asthma Renal/ Medical History: Denies: Hx Peritoneal Dialysis Psychiatric Medical History: Denies: Hx Depression Past Surgical History: Reports: Hx Orthopedic Surgery Review of Systems - Review of Systems -: Yes All other systems reviewed and negative Physical Exam - Vital signs Vitals: Temp Pulse Resp BP Pulse Ox 99.1 F 101 H 20 137/78 H 98 08/16/18 16:09 08/16/18 16:09 08/16/18 16:09 08/16/18 16:09 08/16/18 16:09 - Notes Notes: PHYSICAL EXAMINATION: GENERAL: Well-appearing, well-nourished and in no acute distress. HEAD: Atraumatic, normocephalic. EYES: Pupils equal round and reactive to light, extraocular movements intact, sclera anicteric, conjunctiva are normal. ENT: Nares patent and without discharge. oropharynx clear without exudates. No tonsilar hypertrophy or erythema. Moist mucous membranes. NECK: Normal range of motion, supple without lymphadenopathy LUNGS: Breath sounds clear to auscultation bilaterally and equal. No wheezes rales or rhonchi. HEART: Regular rate and rhythm without murmurs, rubs, gallops. ABDOMEN: Soft, nontender, nondistended abdomen. No guarding, no rebound. No masses appreciated. Normal bowel sounds present. No CVA tenderness bilaterally. : Scant urethral discharge, clear, noted. No lesions, ulcerations, erythema , or swelling noted. No obvious adenopathy/hernia noted. Pt has no testicular or epididymal tenderness on exam. No transverse lie. Cremasteric normal b/l. Musculoskeletal: FROM to passive/active. Strength 5+/5. Extremities: No cyanosis, clubbing, or edema b/l. Peripheral pulses 2+. Capillary refill less than 3 seconds. NEUROLOGICAL: Normal speech, normal gait. PSYCH: Normal mood, normal affect. SKIN: Warm, Dry, normal turgor, no rashes or lesions noted. Course - Re-evaluation Re-evalutation: 08/16/18 16:58 Patient is an afebrile, well-hydrated, 27-year-old male who presents to the ED with urethral discharge and dysuria, possible STD. Vitals are acceptable without any significant tachycardia, tachypnea, or hypoxia. PE is otherwise unremarkable. Patient does not have any testicular pain and does not have any tenderness on exam. Patient states that he is primary complaint over the past week has been penile and not testicular. Reviewed with patient that we will hold off on the ultrasound at this time as he is asymptomatic otherwise. Patient knows that with any development of pain in his testicles that he needs to come back for ultrasound. Zithromax and Rocephin was given today. Chlamydia gonorrhea test pending. Patient is tolerating p.o. without any difficulties and is nontoxic-appearing. Advised to recheck with the health department this week and refraining from sexual intercourse over the next 2 weeks. Return to the ED with any worsening/concerning symptoms otherwise as reviewed in discharge. Patient is in agreement. - Vital Signs Vital signs: Temp Pulse Resp BP Pulse Ox 99.1 F 101 H 20 137/78 H 98 08/16/18 16:09 08/16/18 16:09 08/16/18 16:09 08/16/18 16:09 08/16/18 16:09 Discharge - Discharge Clinical Impression: Dysuria Condition: Stable Disposition: HOME, SELF-CARE Additional Instructions: Push fluids (i.e. water, cranberry juice) Proper hygenic technique Keep the skin clean Tylenol/ibuprofen as needed Use condoms every time during sexual intercourse Abstain from any sexual intercourse over the next 2 weeks You may call in the next day for your results of your chlamydia and gonorrhea test, but you have been treated today for this. May use over the counter AZO for burning with urination times 2-3 days See the health department this week for further evaluation and possible testing F/u with your PCM in 3-5 days for a recheck Consider consult with a Urologist for ongoing/worsening symptoms. Return to the ED with any worsening symptoms and/or development of fever, headache, chest pain, palpitations, syncope, shortness of breath, trouble breathing, abdominal pain, n/v/d, blood in stool/urine, loss of control of bowel /bladder, urinary retention, or other worsening symptoms that are concerning to you. Forms: Elevated Blood Pressure, Smoking Cessation Education Referrals: [facility] [NO LOCAL MD] - Follow up in 3-5 days
[2018-08-16 17:11] LABS: APPEARANCE,URINE SLIGHTLY-CLOUDY; BILIRUBIN,URINE NEGATIVE (NEGATIVE); COLOR,URINE YELLOW; GLUCOSE, URINE NEGATIVE (NEGATIVE); KETONES,URINE NEGATIVE (NEGATIVE); LEUKOCYTE ESTERASE,URINE LARGE (NEGATIVE); NITRITE,URINE NEGATIVE (NEGATIVE); PROTEIN,URINE 30 mg/dL (NEGATIVE); URINE SPECIFIC GRAVITY 1.026
[2018-08-16 17:16] VITALS: BP 129/76
[2018-08-16 20:08] LABS: CHLAM PCR DETECTED (NOT DETECT); GON PCR DETECTED (NOT DETECT)
== END 2018-08-16 17:24 | disposition home or self-care (01) ==
LOC: ER 15:52
DX: R30.0 Dysuria (principal); F17.200 Nicotine dependence, unspecified, uncomplicated
CPT/HCPCS: 99283; 96372; 81001; 87491; 87591; J3490; J0696

== ENCOUNTER 2018-11-10 22:10 | Emergency (ER) | payer SELFPAY ==
[2018-11-11] MEDS ORDERED: IBUPROFEN 600 MG TABLET PO ONE (01:15)
[2018-11-11] MEDS ORDERED: ACETAMINOPHEN 325 MG TABLET PO ONE (01:15)
[2018-11-11] MEDS ORDERED: NORMAL SALINE 1000 ML 1,000 ML IV ONE (01:15)
--- NOTE | 2018-11-11 01:23 | ER Document Report ---
ED General - General Chief Complaint: Chest Pain Stated Complaint: CHEST PAIN,BODY ACHES Time Seen by Provider: 11/11/18 00:49 Notes: 27-year-old male in no acute distress with history of asthma presents to the emergency department with chest pain and body aches for 2-3 days. Patient said he has had a cough for the last 2-3 days that is productive and body aches and chest tightness that started today. He endorses the chest pain is with coughing and is reproducible. He endorses chills and diaphoresis, sinus pressure, shortness of breath, coryza. He did vomit one times today but states that it was secondary to his cough. He denies any ear pain, sore throat, nausea, diarrhea, or any other symptoms. He has not received his flu shot this year. He works at a [employer] where he is in close proximity to many people. He has not taken anything for symptoms today to include his home inhaler. TRAVEL OUTSIDE OF THE [place] IN LAST 30 DAYS: No - HPI Patient complains to provider of: Cough, chest pain - Related Data Allergies/Adverse Reactions: No Known Allergies Allergy (Unverified 10/13/17 02:48) Past Medical History - General Information source: Patient - Social History Smoking Status: Current Every Day Smoker Cigarette use (# per day): Yes - 5 Family History: CAD, Other - Father of a blood clot Pulmonary Medical History: Reports: Hx Asthma Renal/ Medical History: Denies: Hx Peritoneal Dialysis Psychiatric Medical History: Denies: Hx Depression Past Surgical History: Reports: Hx Orthopedic Surgery Review of Systems - Review of Systems Constitutional: See HPI EENT: See HPI Cardiovascular: See HPI Respiratory: See HPI Gastrointestinal: See HPI Genitourinary: No symptoms reported Male Genitourinary: No symptoms reported Musculoskeletal: No symptoms reported Skin: No symptoms reported Hematologic/Lymphatic: No symptoms reported Neurological/Psychological: No symptoms reported Physical Exam - Vital signs Vitals: Temp Pulse Resp BP Pulse Ox 99.7 F 106 H 19 138/80 H 95 11/10/18 22:28 11/10/18 22:28 11/10/18 22:28 11/10/18 22:28 11/10/18 22:28 Course - Re-evaluation Re-evalutation: 11/11/18 01:23 Patient is a pleasant 27-year-old male who presents to the emergency department with chest pain and generalized body pain since this morning. He has had a cough for the last 2-3 days that is productive. 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 Patient is tachycardic on physical exam at 108 bpm. Plan is to give him 1 L normal saline to assess responsiveness as I am concerned that patient may be dehydrated. Patient has not taken anything for his symptoms today so I will also give Tylenol and Motrin. 11/11/18 02:20 Patient received normal saline 1 L, Motrin, Tylenol. Reevaluated patient and he feels much better he states although he has a headache. Patient is no longer tachycardic, pulse 96. Explained to patient that he can take Tylenol 1000 mg every 6 hours and Motrin 600 mg every 6 hours to help relieve his symptoms. I will also prescribe him Tessalon Perles to help with his cough. Patient is stable for discharge - Vital Signs Vital signs: Temp Pulse Resp BP Pulse Ox 99.7 F 106 H 19 138/80 H 95 11/10/18 22:28 11/10/18 22:28 11/10/18 22:28 11/10/18 22:28 11/10/18 22:28 Discharge - Discharge Clinical Impression: Chest wall pain, Cough Condition: Good Disposition: HOME, SELF-CARE Instructions: Chest Wall Pain ([facility]) Additional Instructions: You were seen in the emergency department this evening for cough and chest pain. Your chest pain is most likely related to the cough that is from an upper respiratory infection. It is very important because you are an asthmatic to monitor your breathing, if you feel like you are wheezing at all please use your albuterol inhaler or nebulizer. Also, you can take Tylenol 1000 mg every 6 hours and Motrin 600 mg every 6 hours to help with your symptoms. I have also prescribed you a medication called Tessalon Perles which you can take every 8 hours for your cough. It should help suppress your cough which will allow your chest wall muscles to heal. If you develop a fever, your symptoms worsen, you have intractable nausea or vomiting, or pass out please immediately return to the emergency department Forms: Return to Work
[2018-11-11 01:58] LABS: A TYPE INFLUENZA AG NEGATIVE (NEGATIVE); B INFLUENZA AG NEGATIVE (NEGATIVE)
[2018-11-11 02:47] VITALS: BP 111/56
== END 2018-11-11 02:47 | disposition home or self-care (01) ==
LOC: ER 22:10
DX: R07.89 Other chest pain (principal); J45.909 Unspecified asthma, uncomplicated; R00.0 Tachycardia, unspecified; R05 Cough; R68.83 Chills (without fever); R61 Generalized hyperhidrosis; J34.89 Other specified disorders of nose and nasal sinuses; R06.02 Shortness of breath; J00 Acute nasopharyngitis [common cold]; F17.210 Nicotine dependence, cigarettes, uncomplicated
CPT/HCPCS: 99284; 96360; 87804; J7030

== ENCOUNTER 2019-05-24 01:32 | Emergency (ER) | payer SELFPAY ==
--- NOTE | 2019-05-24 03:08 | RADIOLOGY REPORT (SQ) ---
EXAM DESCRIPTION: XR WRIST 3 OR MORE VIEWS BILATERAL COMPLETED DATE/TME: 05/24/2019 00:00 CLINICAL HISTORY: 28 years, Male, bone tenderness COMPARISON: None. NUMBER OF VIEWS: 6 TECHNIQUE: 3 views of each wrist LIMITATIONS: None. FINDINGS: Left wrist: Minimally displaced comminuted fracture deformity of the distal radial metaphysis. There is intra-articular extension. There is also a mildly displaced ulnar styloid fracture. Associated soft tissue swelling. Subtle lucency of the distal scaphoid, also likely reflects distal scaphoid fracture. Right wrist: Minimally displaced intra-articular fracture deformity of the distal radial metaphysis. Associated soft tissue swelling. No other fractures. IMPRESSION: Fracture deformities of the wrists bilaterally, as above. Nondisplaced distal left scaphoid fracture. copyright 2010 [employer]- All Rights Reserved
[2019-05-24] MEDS ORDERED: HYDROMORPHONE HCL INJ/PF 2 MG/ML AMPULE IM ONE (04:51)
[2019-05-24] MEDS ORDERED: ONDANSETRON 4 MG TAB.RAPDIS PO ONE (04:52)
[2019-05-24] MEDS ORDERED: HYDROCODONE/ACETAMINOPHEN 5-325 MG (6 TAB/ER DISP) PO PRN (05:05)
--- NOTE | 2019-05-24 05:07 | ER Document Report ---
ED Hand/Wrist Injury - General Chief Complaint: Wrist Pain Stated Complaint: BILATERAL WRIST INJURIES Time Seen by Provider: 05/24/19 04:46 Primary Care Provider: AARON MEADOWS DO [ACTIVE STAFF] - Follow up tomorrow Notes: Patient is a 28-year-old male that comes emergency department with chief complaint of pain to both wrists. He states he was running outside, tripped, landed on both wrists with his hands outstretched. He denies hitting his head, he denies any other symptoms or locations of pain. He denies alcohol. He denies any diagnosed medical problems or daily medications. Family at bedside. TRAVEL OUTSIDE OF THE [place] IN LAST 30 DAYS: No - Related Data Allergies/Adverse Reactions: No Known Allergies Allergy (Verified 05/24/19 01:38) Past Medical History - General Information source: Patient - Social History Smoking Status: Never Smoker Frequency of alcohol use: None Drug Abuse: None Lives with: Family Family History: CAD, Other - Father of a blood clot Pulmonary Medical History: Reports: Hx Asthma Renal/ Medical History: Denies: Hx Peritoneal Dialysis Psychiatric Medical History: Denies: Hx Depression Past Surgical History: Reports: Hx Orthopedic Surgery - Immunizations Immunizations up to date: Yes Hx Diphtheria, Pertussis, Tetanus Vaccination: Yes Review of Systems - Review of Systems Constitutional: No symptoms reported EENT: No symptoms reported Cardiovascular: No symptoms reported Respiratory: No symptoms reported Gastrointestinal: No symptoms reported Genitourinary: No symptoms reported Male Genitourinary: No symptoms reported Musculoskeletal: See HPI Skin: No symptoms reported Hematologic/Lymphatic: No symptoms reported Neurological/Psychological: No symptoms reported Physical Exam - Vital signs Vitals: Temp Pulse Resp BP Pulse Ox 98.0 F 86 20 136/84 H 99 05/24/19 01:40 05/24/19 01:40 05/24/19 01:40 05/24/19 01:40 05/24/19 01:40 - Notes Notes: GENERAL: Patient appears mildly uncomfortable but not in severe distress HEAD: Normocephalic, atraumatic. EYES: Pupils equal, round, and reactive to light. Extraocular movements intact. ENT: Oral mucosa moist, tongue midline. Oropharynx unremarkable. Airway patent. NECK: Full range of motion. Supple. Trachea midline. LUNGS: Clear to auscultation bilaterally, no wheezes, rales, or rhonchi. No respiratory distress. HEART: Regular rate and rhythm. No murmur ABDOMEN: Soft, non-tender. Non-distended. GENITOURINARY: Deferred EXTREMITIES: Lower extremities normal. Patient has pain and some soft tissue swelling over both wrists generally. He has normal range of motion of the fingers, normal capillary refill and sensation, normal temperature. Normal forearm and elbow exams. Normal upper extremity exams otherwise. BACK: no cervical, thoracic, lumbar midline tenderness. No saddle anesthesia, normal distal neurovascular exam. Moves all extremities in full range of motion. NEUROLOGICAL: Alert and oriented x3. Normal speech. Cranial nerves II through XII grossly intact. PSYCH: Normal affect, normal mood. SKIN: Warm, dry, normal turgor. No rashes or lesions noted. Course - Re-evaluation Re-evalutation: No other injuries noted except for pain and swelling over both wrists. Unfortunately both wrists are fractured, the left has a scaphoid, distal radius, distal ulna fracture, the right has a radius fracture that is intra-articular. There is no significant deformity on either side. I did discuss with Dr. Redmond, he does not recommend any reduction attempts. He recommends splinting with pain management and close orthopedic follow-up. I discussed with patient in detail, sugar tongs were placed on both sides, provided with pain medication, referral. Patient states he will follow-up with orthopedics and return for any concerning or worsening symptoms. - Vital Signs Vital signs: Temp Pulse Resp BP Pulse Ox 98 F 84 20 134/81 H 99 05/24/19 06:33 05/24/19 06:33 05/24/19 06:33 05/24/19 06:33 05/24/19 06:33 Procedures - Immobilization right wrist Pre-Proc Neuro Vasc Exam: Normal Immobilizer type: Sugar tong Performed by: PCT Post-Proc Neuro Vasc Exam: Normal Alignment checked and good: Yes left wrist Pre-Proc Neuro Vasc Exam: Normal Immobilizer type: Sugar tong Performed by: PCT Post-Proc Neuro Vasc Exam: Normal Alignment checked and good: Yes Discharge - Discharge Clinical Impression: Wrist fracture, bilateral Qualifiers: Encounter type: initial encounter Fracture type: closed Qualified Code(s): S62.101A - Fracture of unspecified carpal bone, right wrist, initial encounter for closed fracture Condition: Stable Disposition: HOME, SELF-CARE Additional Instructions: Unfortunately you have 3 broken bones in your wrist on the left side and one broken bone in your wrist on the right side. Wear the splints, take the pain medication as prescribed if needed, call the orthopedic follow-up today to establish close follow-up for additional management. Return if you worsen including severe swelling or pain. Prescriptions: Oxycodone HCl/Acetaminophen [Percocet 5-325 mg Tablet] 1 - 2 tab PO TID PRN #15 tablet PRN Reason: Forms: Return to Work Referrals: AARON MEADOWS DO [ACTIVE STAFF] - Follow up tomorrow
[2019-05-24 06:34] VITALS: BP 134/81
== END 2019-05-24 06:35 | disposition home or self-care (01) ==
LOC: ER 01:32
DX: S62.101A Fracture of unspecified carpal bone, right wrist, initial encounter for closed fracture (principal); S62.102A Fracture of unspecified carpal bone, left wrist, initial encounter for closed fracture; W01.0XXA Fall on same level from slipping, tripping and stumbling without subsequent striking against object, initial encounter
CPT/HCPCS: 99283; 73110; 29125; S0119; J1170